=== PATIENT | male | born 1995 | race Caucasian/White ===

== ENCOUNTER 2018-10-04 07:55 | Emergency (ER) | END 2018-10-04 10:42 | disposition home or self-care (01) ==

== ENCOUNTER 2019-06-23 13:21 | Emergency (ER) | payer SELFPAY ==
[~2019-06-23] VITALS: Ht 185.4 cm; Wt 125.5 kg
[~2019-06-23 13:21] MED LIST: CEPH-443 PO; CIPR500T4 PO; CLIN300C10 PO; HYDR-4011 PO; IBUP-1542 PO; NAPR-985 PO
[2019-06-23 13:56] VITALS: BP 175/76; PULSE 78; RESP 17; Ht 185.4 cm; Wt 125.5 kg
[2019-06-23] MEDS ORDERED: LIDOCAINE 1% (MDV) 10 ML INJ INJ STA (15:09)
[2019-06-23] MEDS ORDERED: HYDROCODONE/APAP (10/325) TAB PO ONE ×2 (15:30→17:30)
[2019-06-23] MEDS ORDERED: LIDOCAINE 1% (MDV) 20 ML INJ INJ STA (15:32)
== END 2019-06-23 17:21 | disposition home or self-care (01) ==
LOC: FTE 13:21
DX: S61.012A Laceration without foreign body of left thumb without damage to nail, initial encounter (principal); F17.210 Nicotine dependence, cigarettes, uncomplicated; W31.2XXA Contact with powered woodworking and forming machines, initial encounter; Y92.89 Other specified places as the place of occurrence of the external cause
CPT/HCPCS: 73140

== ENCOUNTER 2019-06-28 10:28 | Emergency (ER) | payer SELFPAY ==
[~2019-06-28] VITALS: Ht 274.3 cm; Wt 90.0 kg
[2019-06-28 10:32] VITALS: BP 132/72; PULSE 72; RESP 18; Ht 274.3 cm; Wt 90.0 kg
== END 2019-06-28 11:31 | disposition home or self-care (01) ==
LOC: FTE 10:28
DX: S61.012D Laceration without foreign body of left thumb without damage to nail, subsequent encounter (principal); F17.210 Nicotine dependence, cigarettes, uncomplicated; W31.2XXD Contact with powered woodworking and forming machines, subsequent encounter
CPT/HCPCS: 99281

== ENCOUNTER 2019-07-02 13:27 | Emergency (ER) | payer SELFPAY ==
[~2019-07-02] VITALS: Ht 185.4 cm; Wt 123.2 kg
[2019-07-02 13:31] VITALS: BP 147/80; PULSE 82; RESP 16; Ht 185.4 cm; Wt 123.2 kg
== END 2019-07-02 13:58 | disposition home or self-care (01) ==
LOC: E/R 13:27
DX: Z48.02 Encounter for removal of sutures (principal); Z87.891 Personal history of nicotine dependence
CPT/HCPCS: 99281